=== PATIENT | female | born 1960 | race Hispanic/Latino ===

== ENCOUNTER 2024-04-08 18:09 | Emergency (ER) | payer OTHER ==
[~2024-04-08] VITALS: Ht 152.4 cm; Wt 70.3 kg
[2024-04-08] MEDS ORDERED: GLUMETZA1000 MG PO (18:25)
[2024-04-08] MEDS ORDERED: HYDROCHLOROTHIA25 MG PO (18:25)
[2024-04-08] MEDS ORDERED: COZAAR100 MG PO (18:25)
[2024-04-08] MEDS ORDERED: LIPITOR40 MG PO (18:26)
[2024-04-08] MEDS ORDERED: NORVASC5 MG PO (18:26)
[2024-04-08] MEDS ORDERED: ASPIRIN 81 MG CHEW PO ONE (18:45)
[2024-04-08] MEDS ORDERED: NITROGLYCERIN 0.4 MG SUBL SL PRN (18:45)
[2024-04-08 18:46] LABS: BASOPHILS 0.5 % (0-2); EOSINOPHILS 0.3 % (0-6); HEMOGLOBIN 12.6 g/dL (12.0-18.0); LYMPHOCYTES 20.9 % (24-44); MCH 29.6 (27-36); MONOCYTES 6.2 % (0-12); NEUTROPHILS 72.1 % (39-80); PLATELET COUNT 314 K/uL (140-440); RBC 4.25 M/ul (4.3-5.7); RDW 13.5 (10.5-15.0)
[2024-04-08 19:06] LABS: ALBUMIN 3.9 g/dL (3.4-5.0); ALBUMIN/GLOBULIN RATIO 1.08 (1.1-2.4); ANION GAP 15.7 (7-21); BILIRUBIN, TOTAL 0.8 ng/dL (0.2-1.0); BUN/CREATININE RATIO 12.59 (6.0-28.6); CALCIUM 9.6 mg/dL (8.5-10.1); CREATININE, SERUM 1.35 mg/dL (0.55-1.02); MAGNESIUM 1.5 mg/dL (1.8-2.4); POTASSIUM 3.7 mmol/L (3.5-5.1); PROTEIN, TOTAL 7.5 g/dL (6.4-8.2)
[2024-04-08 20:00] VITALS: BP 114/56
--- NOTE | 2024-04-09 11:45 | EKG ---
[facility] [address] [facility] [place], [place] [address] Signed Normal sinus rhythm Normal ECG No previous ECGs available Confirmed by Shantel Mcnair ([id number]) on 04/09/2024 11:45:30 AM Electronically Signed By: SHANTEL MCNAIR MD 04/09/24 1145 PATIENT NAME: RAFY BUSBY Electrocardiogram DATE OF : 58 PHYSICIAN: SHANTEL MCNAIR MD REPORT #: [id number] REPORT IS CONFIDENTIAL AND NOT TO BE RELEASED WITHOUT AUTHORIZATION
== END 2024-04-08 20:36 | disposition home or self-care (01) ==
LOC: ED 18:09
PROVIDERS: Emergency Medicine
DX: R07.89 Other chest pain (principal); E11.9 Type 2 diabetes mellitus without complications; I10 Essential (primary) hypertension; E78.5 Hyperlipidemia, unspecified; Z79.84 Long term (current) use of oral hypoglycemic drugs; Z79.899 Other long term (current) drug therapy
CPT/HCPCS: 36415; 71045; 80053; 83735; 84484; 85025; 85379; 93005; 93010; 99285-25; A9270